=== PATIENT | male | born 1990 ===

== ENCOUNTER 2017-06-21 22:42 | Emergency (ER) | payer SELFPAY ==
[2017-06-21 23:08] VITALS: BP 117/68; PULSE 92; RESP 18; TEMP 98.3; O2SAT 96
--- NOTE | 2017-06-21 23:40 | C.PDOC ---
History Of Present Illness 26 year old male presents to the ER after he felt a small lump on the back of his neck and a small bump to his posterior scalp which concerned him and prompted visit. Patient reports minimal pain but denies neck pain, neck muscle spasm, fever, headache, or fever. Time Seen by Provider: 06/21/17 23:07 Chief Complaint (Nursing): Abnormal Skin Integrity History Per: Patient History/Exam Limitations: no limitations Onset/Duration Of Symptoms: Hrs (few) Current Symptoms Are (Timing): Still Present Location Of Injury: Posterior: Head, Neck Recent travel outside of the [place]: No Past Medical History Reviewed: Historical Data, Nursing Documentation, Vital Signs Vital Signs: Last Vital Signs Temp 98.3 F 06/21/17 23:00 Pulse 92 H 06/21/17 23:00 Resp 18 06/21/17 23:00 BP 117/68 06/21/17 23:00 Pulse Ox 96 06/22/17 03:21 - Medical History PMH: Anxiety Surgical History: No Surg Hx Family History: States: Unknown Family Hx - Social History Hx Alcohol Use: Yes Hx Substance Use: No Review Of Systems Constitutional: Negative for: Fever Musculoskeletal: Negative for: Neck Pain Skin: Positive for: Other (Lump to back of neck, bump to back of head) Neurological: Negative for: Headache Physical Exam - Physical Exam Appears: Non-toxic, No Acute Distress Skin: Normal Color, Warm, Dry Head: Atraumatic, Normacephalic, Other (small bony protrusion to posterior left scalp) Eye(s): bilateral: Normal Inspection, PERRL, EOMI Ear(s): Bilateral: Normal Oral Mucosa: Moist Throat: Normal Neck: Normal, Supple Lymphatic: Other (Pea sized mobile lymph adenopathy to left posterior neck area at base of scalp.) Extremity: Bilateral: Atraumatic Neurological/Psych: Oriented x3, Normal Speech, Normal Cognition, Normal Motor, Normal Sensation ED Course And Treatment O2 Sat by Pulse Oximetry: 96 (Room air) Pulse Ox Interpretation: Normal Progress Note: Patient reassured and instructed to follow up with PMD for further evaluation. Disposition Counseled Patient/Family Regarding: Diagnosis, Need For Followup, Rx Given - Disposition Referrals: Gee Chery DO [Staff Provider] - Disposition: HOME/ ROUTINE Disposition Time: 23:37 Condition: STABLE Additional Instructions: Please follow up with PMD Return to ER if worse Instructions: Lymphadenopathy (ED) Forms: [facility] (Slovak), Work Excuse - Clinical Impression Clinical Impression: Lymphadenopathy of head and neck - Scribe Statement The provider has reviewed the documentation as recorded by the Scribmaryjo Forde All medical record entries made by the Lornaibmaryjo were at my direction and personally dictated by me. I have reviewed the chart and agree that the record accurately reflects my personal performance of the history, physical exam, medical decision making, and the department course for this patient. I have also personally directed, reviewed, and agree with the discharge instructions and disposition.
== END 2017-06-21 23:47 | disposition home or self-care (01) ==
LOC: C.ER 22:42
DX: R59.1 Generalized enlarged lymph nodes (principal)